=== PATIENT | female | born 1935 | race Caucasian/White ===

== ENCOUNTER 2017-02-15 06:15 | Inpatient (IN) | payer OTHER ==
--- NOTE | 2017-02-15 12:06 | HOSPPROG ---
Hospitalist Progress Note Assessment/Plan: HISTORY AND PHYSICAL CC:Difficulty with balance and fall at home HISTORY: This patient felt fine when she went to bed last night but awoke at 2 o'clock this morning feeling a need to urinate. As she tried to get up out of bed she suddenly felt that her balance was off and she fell forward tumbling onto the floor. She does not feel like she injured herself to her fall at all. However since then every time she tries to sit up or stand up she starts to fall directly forward and does not have the balance to prevent this. She has not been able to stand up successfully since that time. She delayed coming to the ER but eventually this morning came into the ER where she still was having balance difficulty tipping forward. She denies any kind of dizziness or lightheadedness, denies anything that sounds like vertigo, though she did have some nausea briefly at home this morning without vomiting. There is no headache, no change in vision, no auditory symptoms ear pain or ear pressure. She has no recent head injury. There are no palpitations or chest pain or shortness of breath. She has noticed no focal weakness or any other focal neurologic symptoms. Notably the patient does have some chronic balance issues and does use 2 canes to assist her walking if she is on any kind of uneven surface. The patient has history of 1 episode of syncope years ago but has had no syncopal type symptoms since having a pacer placed about 7 years ago. 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 She had 4 children No use of tobacco or alcohol MEDICATIONS: The patients list has been reconciled by our clinical pharmacist in the EMR. I have reviewed the list and ordered appropriate medicines. 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, no focal weakness I did have her sit forward and did several other brainstem maneuvers and did not find any nystagmus pupils round equal and reactive and her vision appears normal grossly at the bedside Skin: warm, dry, good color, no rash HEENT: normal Neck: no mass or jvd Resps: relaxed Lungs: clear breath sounds Heart: regular, no murmur Abdomen: soft, nondistended, nontender, +BS, no mass Upper Extremities: normal Lower Extremities: no edema, warm No Bleeding or bruising IV site: looks normal LABORATORY DATA: all lab data are still pending at this time RADIOLOGY STUDIES: CT scan of head was done in the ER, my personal review of images and interpretation: No bleed, ischemic lesions, masses, or other acute abnormalities, no significant atrophy 12 LEAD EKG: Pending ASSESSMENT: 1-Acute onset of disequilibrium with tendency to fall directly forward, fall at home, gait instability 2-Highly suspicious for acute ischemic stroke of brainstem or cerebellum 3-History of atrial fibrillation on chronic anticoagulation and chronic daily aspirin at low-dose, stable with paced rhythm at this time 4-Chronic stable systolic heart disease with most recent ejection fraction measured at 20 to 25%, well compensated at this time 5-Mild systolic hypertension at this time may be related to her acute event 6-Pulmonary hypertension noted on previous echocardiograms PLANS: - I reviewed her case in detail with Dr. Morgan and asked him to see the patient -Observe on property management intern -Continue daily aspirin and Eliquis -Check lipid panel -Imaging of carotid arteries -Fall risk precautions -The speech language pathology assessment of her swallowing -Physical occupational therapy -Consider repeat CT scan to reassess brainstem and cerebellum for possible ischemic lesion -Permissive hypertension at this time but will follow closely and treat as indicated over time I have reviewed the patient's case in detail with Dr. Alvin Morgan of Neurology I have reviewed the patient's past medical records as part of this assessment, including prior hospital records from this hospital Objective: Vital Signs Temp Pulse Resp BP Pulse Ox 36.3 C 70 18 169/91 H 96 02/15/17 11:41 02/15/17 11:41 02/15/17 11:41 02/15/17 11:41 02/15/17 11:41 ICD10 Worksheet Patient Problems: Problems Problem Status Onset Acute exacerbation of CHF (congestive heart failure) Acute CHF (congestive heart failure) Acute Chronic Disease Mgmt/Transitional Care Acute Pneumonia Acute
[2017-02-15 12:50] LABS: % IMMATURE GRANULYOCYTES 0.2 % (0.0-1.1); ABSOLUTE IMMATURE GRANULOCYTES 0.01 10^3/uL (0.00-0.10); ADD DIFF? NO; ADD MORPH? NO; ADD SCAN? NO; ATYPICAL LYMPHOCYTE FLAG 10 (0-99); FRAGMENT RBC FLAG 20 (0-99); HEMATOCRIT 41.4 % (38.0-47.0); HEMOGLOBIN 13.9 g/dL (12.6-16.3); LEFT SHIFT FLG 0 (0-99); LIPEMIA HEMOLYSIS FLAG 80 (0-99); MEAN CELL HEMOGLOBIN 30.8 pg (27.9-34.1); MEAN CELL HEMOGLOBIN CONCENTR. 33.6 g/dL (32.4-36.7); MEAN CELL VOLUME 91.6 fL (81.5-99.8); MEAN PLATELET VOLUME 9.5 fL (8.7-11.7); PLATELET CLUMPS FLAG 10 (0-99); PLATELET COUNT 268 10^3/uL (150-400); RED BLOOD CELL COUNT 4.52 10^6/uL (4.18-5.33)
[2017-02-15 12:57] LABS: INR 1.2 (0.83-1.16); PROTIME(PATIENT) 15.2 SEC (12.0-15.0)
--- NOTE | 2017-02-15 14:44 | GCON ---
[f rep st] CONSULTATION NEUROLOGIC CONSULTATION REFERRING PHYSICIAN: Duy Negron MD HISTORY: This is an 83 year-old woman, who has a chief complaint of falling forward. She had been stable when she went to bed, and woke up at 2 in the morning feeling a need to urinate, and got out of bed and fell forward. She continues to complain that when she gets up she feels as if she is going to fall forward, but says it is not a spinning or vertiginous phenomenon. She is not having chest pain or palpitations or shortness of breath. No focal numbness or weakness. No change in vision, speech, chewing, or swallowing. She does have some trouble with balance, and often uses canes when she is walking, and occasionally has a little bit of numbness in her feet. She had a syncopal event several years ago, and has a pacemaker in place and AICD. She has a low ejection fraction. She had a new device placed 2 years ago, and is followed by Dr. Ahuja in Cardiology. REVIEW OF SYSTEMS: A 10-point review of systems was completed and unremarkable , except for that noted above. PAST MEDICAL HISTORY: History of atrial fibrillation, with ablation and pacer. Heart failure, with ejection fraction of 20% to 25%. Pulmonary hypertension. Lumpectomy. Chronic kidney disease. FAMILY HISTORY: No family history of stroke. SOCIAL HISTORY: No alcohol or smoking. ALLERGIES: No known allergies. MEDICATIONS AT HOME: [place]-3 fatty acids, multivitamin, Toprol-XL 25 mg, aspirin 81 mg daily, and Eliquis 5 mg twice daily. PHYSICAL EXAM: VITAL SIGNS: Blood pressure is 169/91, pulse of 70, respirations 18, temperature 36.3. GENERAL: She is well developed, in no acute distress. EYES: Clear. NECK: Supple. No bruits or masses. CARDIAC: Regular rate and rhythm. NEUROLOGIC: She is awake, alert, attentive, and fully oriented. Pupils 3 mm and reactive. Extraocular movements intact. Normal facial sensation and movement. Motor exam: Normal muscle bulk and tone. 5/5 strength. Sensation is preserved for temperature and light touch, although perhaps a little decreased sensory perception in the feet. Reflexes hypoactive in the legs. LABORATORY STUDIES: Unremarkable CBC and chemistry. INR of 1.2. She had a head CT obtained, which showed no acute abnormalities, with just some cerebral atrophy and chronic microvascular disease changes. IMPRESSION: The patient has developed acute feeling of unsteadiness, that arose at 2 this morning and has persisted. It is a feeling of falling forward without having classic vertigo. It could be peripheral, but these are not classic vestibular symptoms. Midline cerebellar infarct in the vermis would be a consideration, but we cannot have MRI to look for that acutely beyond the head CT we have obtained. There is not really any other clear-cut explanation for why she would have this. She does not seem to have parkinsonism, and a little bit of neuropathy would not typically make someone fall forward. PLAN: Will be probably to monitor, and perhaps repeat head CT tomorrow. I will also check a carotid ultrasound to make sure she does not have any severe stenoses in the carotid system. TOTAL UNIT TIME: 55 minutes. /[id number]/MODL MTDD
--- NOTE | 2017-02-15 15:50 | EDPHY ---
H & P Time Seen by Provider: 02/15/17 06:45 HPI/ROS: CHIEF COMPLAINT: Off balance HISTORY OF PRESENT ILLNESS: This 81-year-old woman was in her usual state of health yesterday. She woke up at 2:00 a.m. today to go to the bathroom and lost her balance. She at that time did have some right knee pain which is now completely gone. She felt like she was almost going forward and could not stand up without assistance. She lives alone was brought in by friend. This was associated with some nausea but not with a headache. She has had vertigo and this did not feel similar. She specifically did not have a sensation of spinning. Symptoms continue and are moderate to severe. REVIEW OF SYSTEMS: Eye: no change in vision ENT: no sore throat Cardiac: no chest pain or syncope Pulmonary: no cough or SOB Abdomen: no vomiting, diarrhea, abdominal pain Musculoskeletal: HPI Skin: She has a groin rash bilateral which is chronic and unchanged from usual. Neuro: HPI Constitutional: no fever : no urinary symptoms A comprehensive 10 point review of systems is otherwise negative aside from elements mentioned in the history of present illness. PAST MEDICAL HISTORY: Includes pacemaker, AFib on Eliquis, congestive heart failure. Pulmonary hypertension. Social history: Nonsmoker General Appearance: Alert and conversant, cooperative. Eyes: No scleral icterus. Extraocular motion intact. Pupils reactive to light. ENT, Mouth: Normal mucous membranes. Respiratory: Normal respiratory effort, breath sounds equal, lungs are clear to auscultation. Cardiovascular: Regular rate and rhythm. Gastrointestinal: Abdomen is soft and non tender. Neurological: Alert and oriented x3. Normally conversant. Face symmetric, normal movement and sensation in all extremities. Normal [id number] bilaterally and no pronator drift. Toes downgoing. Skin: Scattered red papules on both inner thighs; no petechiae, not hot to the touch, no lymphangitis. Musculoskeletal: No peripheral edema and no joint swelling. Psychiatric: Not agitated. Emergency Department course/MDM: Noncontrast head CT negative per Dr. Townsend at 8:00 a.m.. Patient presents to the emergency department still off balance. Differential includes but not limited to ischemic stroke or other cerebellar problem, Parkinson's, peripheral neuropathy. MRI not obtainable because of the patient's pacemaker. Admission to hospitalist for further evaluation, Neurology consultation. Smoking Status: Never smoked Constitutional: Initial Vital Signs Temperature (C) 36.3 C 02/15/17 11:41 Heart Rate 70 02/15/17 11:41 Respiratory Rate 18 02/15/17 11:41 Blood Pressure 169/91 H 02/15/17 11:41 O2 Sat (%) 96 02/15/17 11:41 Allergies/Adverse Reactions: No Known Allergies Allergy (Verified 07/09/15 10:06) Home Medications: Medication Instructions Recorded Apixaban [Eliquis] 5 mg PO BID 07/09/15 Metoprolol Succinate Xr [Toprol Xl 12.5 mg PO BID 07/09/15 25 mg (*)] Multivitamins [Multivitamin (*)] 1 each PO DAILY 07/09/15 [place]-3 Fatty Acids [Fish Oil 1000 1,000 mg PO DAILY 07/09/15 mg (*)] Aspirin [Aspirin 81mg (*)] 81 mg PO DAILY 02/15/17 Medical Decision Making - Diagnostics EKG Interpretation: 12-lead EKG interpreted by me; official reading is in trace master. My interpretation is atrial flutter with ventricular pacing at a rate of 70 Imaging Results: Imaging Impressions Head CT 02/15/17 07:00 Impression: 1. No acute intracranial findings. If symptoms persist and clinical suspicion warrants, consider MRI. 2. Diffuse cerebral atrophy with periventricular and subcortical low attenuation consistent with chronic microvascular ischemic gliosis. Findings discussed with BUZZ BROWN 02/15/2017 at 757. Differential Diagnosis: Differential considered including but not limited to cerebellar stroke, vertebral dissection, intracranial mass, metabolic, peripheral vertigo, and listed previously. Consult/Admit Bed Type: [address] - Data Points Laboratory Results: Laboratory Results 02/15/17 06:55 02/15/17 02/15/17 02/15/17 06:55 06:55 06:55 WBC 6.01 10^3/uL 10^3/uL (3.80-9.50) RBC 4.52 10^6/uL 10^6/uL (4.18-5.33) Hgb 13.9 g/dL g/dL (12.6-16.3) Hct 41.4 % % (38.0-47.0) MCV 91.6 fL fL (81.5-99.8) MCH 30.8 pg pg (27.9-34.1) MCHC 33.6 g/dL g/dL (32.4-36.7) RDW 14.0 % % (11.5-15.2) Plt Count 268 10^3/uL 10^3/uL (150-400) MPV 9.5 fL fL (8.7-11.7) Neut % (Auto) 42.0 % % (39.3-74.2) Lymph % (Auto) 44.6 % % (15.0-45.0) [place] % (Auto) 9.2 % % (4.5-13.0) Eos % (Auto) 3.5 % % (0.6-7.6) Baso % (Auto) 0.5 % % (0.3-1.7) Nucleat RBC Rel Count 0.0 % % (0.0-0.2) Absolute Neuts (auto) 2.53 10^3/uL 10^3/uL (1.70-6.50) Absolute Lymphs (auto) 2.68 10^3/uL 10^3/uL (1.00-3.00) Absolute Monos (auto) 0.55 10^3/uL 10^3/uL (0.30-0.80) Absolute Eos (auto) 0.21 10^3/uL 10^3/uL (0.03-0.40) Absolute Basos (auto) 0.03 10^3/uL 10^3/uL (0.02-0.10) Absolute Nucleated RBC 0.00 10^3/uL 10^3/uL (0-0.01) Immature Gran % 0.2 % % (0.0-1.1) Immature Gran # 0.01 10^3/uL 10^3/uL (0.00-0.10) PT 15.2 SEC H SEC (12.0-15.0) INR 1.20 H (0.83-1.16) Troponin I < 0.012 ng/mL ng/mL (0-0.034) Departure - Departure Disposition: [facility] Acute Clinical Impression: Ataxia Condition: Good
--- NOTE | 2017-02-15 15:52 | CPEKG ---
Heart Rate: 70 RR Interval: 857 QRSD Interval: 124 QT Interval: 444 QTC Interval: 480 QRS [place]: 184 T Wave [place]: -26 EKG Severity - ABNORMAL ECG - EKG Impression: AFIB/FLUTTER AND VENTRICULAR-PACED RHYTHM Electronically Signed By: Oneil Jones 15-Feb-2017 15:51:11
[2017-02-15] MEDS ORDERED: ONDANSETRON DISINTEGRATING 4 MG TAB PO PRN (17:55)
[2017-02-15] MEDS ORDERED: ZOLPIDEM TARTRATE 5 MG TAB PO PRN (21:36)
[2017-02-15] MEDS: APIXABAN 5 MG TAB PO SCH (22:05)
[2017-02-15] MEDS: METOPROLOL SUCCINATE XR 25 MG TAB PO SCH (22:05)
[2017-02-16 05:15] LABS: CHOLESTEROL 181 mg/dL (140-220); CHOLESTEROL/HDL RATIO 3.93 RATIO (1.00-4.44); HIGH DENSITY LIPOPROTEIN 46 mg/dL (40-85); LDL/HDL RATIO 2.39 RATIO (1.00-3.22); LOW DENSITY LIPOPROTEIN 110 mg/dL (80-100); NON-HIGH DENSITY LIPOPROTEIN 135 mg/dL (90-129); TRIGLYCERIDE 129 mg/dL (35-135); VERY LOW DENSITY LIPOPROTEINS 25 mg/dL (8-25)
[2017-02-16 07:48] VITALS: PULSE 70
[2017-02-16] MEDS ORDERED: MULTIVITAMINS 1 EACH TAB PO SCH (09:00)
[2017-02-16] MEDS ORDERED: ASPIRIN 325 MG TAB PO SCH (09:00)
[2017-02-16] MEDS ORDERED: OMEGA-3 FATTY ACIDS 1,000 MG CAP PO SCH (09:00)
--- NOTE | 2017-02-16 09:21 | NEUROPROG ---
Assessment: Resolving imbalance of uncertain cause. OK to discharge home today on same meds. Total unit time 25 min. Subjective: Pt says that she feels back to her baseline Objective: Vital Signs Temp Pulse Resp BP Pulse Ox 36.4 C 70 16 132/70 H 93 02/16/17 07:43 02/16/17 07:43 02/16/17 07:43 02/16/17 07:43 02/16/17 07:43 02/15/17 02/16/17 02/17/17 05:59 05:59 05:59 Output Total 600 Balance -600 PT 15.2 SEC (12.0-15.0) H 02/15/17 06:55 INR 1.20 (0.83-1.16) H 02/15/17 06:55 Mild unsteadiness but back to baseline essentially and more comfortable with cane. Negative Carotid US. Allergies/Adverse Reactions: No Known Allergies Allergy (Verified 07/09/15 10:06)
[2017-02-16] MEDS: METOPROLOL SUCCINATE XR 25 MG TAB PO SCH (09:22)
[2017-02-16] MEDS: APIXABAN 5 MG TAB PO SCH (09:23)
[2017-02-16 12:08] VITALS: BP 154/73; RESP 18; TEMP 98.6; O2SAT 92
--- NOTE | 2017-02-16 12:57 | PDDCSUM ---
Discharge Summary Discharge Summary: DISCHARGE DIAGNOSES: -suspected cerebellar stroke versus other causes of acute transient cerebellar ataxia and disequilibrium -chronic rate controlled atrial fibrillation on chronic oral anticoagulant with Eliquis -hypercholesterolemia CONSULTANTS: Dr. Alvin Morgan PROCEDURES: CT scan of head with no acute abnormalities Carotid Doppler ultrasound imaging with no evidence of cerebral vascular stenosis HOSPITAL COURSE SUMMARY: This patient was doing well at home until 2 o'clock in the morning on the day of admission when she woke up. She got out of bed trying to bathroom but had imbalance and disequilibrium fell forward to the floor. There was no injury. However following this she was unable to sit up or stand without falling forward. There was no vertigo symptom no hearing or visual symptoms and no other localizing symptoms at all. She presented to the ER with the same symptom and had equivalent changes on examination. She was observed here in the hospital. All of her symptoms completely resolved at this time she is back to being able to walk with a cane which is her usual. There been no other new symptoms neurologic abnormalities or other complications. CT scan of the head was unremarkable and Doppler imaging showed no evidence of cerebral vascular disease. She did have an LDL cholesterol of 110 and is not on a statin therapy. At home she does take Eliquis twice daily for atrial fibrillation and is compliant with that. She does not take a daily aspirin although that had been recommended in the past for her. Her blood pressures have been in reasonable shape here. At this time she is stable for discharge to home. I did review her case with her talent program manager Dr. Seth Ahuja who agrees with resuming daily aspirin and adding statin therapy which were my recommendations. She will continue her Eliquis. PENDING TEST RESULTS: None MEDICATION CHANGES: Begin aspirin 81 mg daily Begin Lipitor 10 mg daily. She will need follow-up before her lipid levels FOLLOW-UP PLAN: With her talent program manager Dr. Ahuja in [place] for her hyperlipidemia and risk reduction management Greater than 35 minutes bedside and care coordination time today
--- NOTE | 2017-02-16 17:26 | PDIAF ---
- Diagnosis Diagnosis: suspected CVA, ataxia dysequilibrium, fall - Medication Management Discharge Medications: Medications to Continue on Transfer Apixaban [Eliquis] 5 mg PO BID 07/09/15 [Last Taken 02/14/17 21:00] Metoprolol Succinate Xr [Toprol Xl 25 mg (*)] 12.5 mg PO BID 07/09/15 [Last Taken 02/14/17 21:00] Multivitamins [Multivitamin (*)] 1 each PO DAILY 07/09/15 [Last Taken 07/16/15] [place]-3 Fatty Acids [Fish Oil 1000 mg (*)] 1,000 mg PO DAILY 07/09/15 [Last Taken 07/14/15] Aspirin [Aspirin 81mg (*)] 81 mg PO DAILY 02/15/17 [Last Taken 02/15/17 3 tabs] Atorvastatin Calcium [Lipitor 10 mg (*)] 10 mg PO DAILY #60 tab 02/16/17 [Last Taken Unknown] Discharge Medications: Refer to the Discharge Home Medication list for PRN reason. - Orders Services needed: Home Care, Physical Therapy Home Care Face to Face: I certify that this patient was under my care and that I had the required [id number] encounter meeting the encounter requirements on the discharge day. My findings support the fact that the patient is homebound as defined in CMS Chapter 7 Medicare Benefits Manual 30.1.1, The condition of the patient is such that there exists a normal inability to leave home and consequently, leaving home would require a considerable and taxing effort. Diet Recommendation: cardiac -low fat low salt Diet Texture: Regular Texture Diet - Follow Up Care Current Providers and Referrals: Chrisitn Alarcon MD [Primary Care Provider] -
--- NOTE | 2017-02-16 17:26 | PDGENHP ---
History and Physical History and Physical: CC:Difficulty with balance and fall at home HISTORY: This patient felt fine when she went to bed last night but awoke at 2 o'clock this morning feeling a need to urinate. As she tried to get up out of bed she suddenly felt that her balance was off and she fell forward tumbling onto the floor. She does not feel like she injured herself to her fall at all. However since then every time she tries to sit up or stand up she starts to fall directly forward and does not have the balance to prevent this. She has not been able to stand up successfully since that time. She delayed coming to the ER but eventually this morning came into the ER where she still was having balance difficulty tipping forward. She denies any kind of dizziness or lightheadedness, denies anything that sounds like vertigo, though she did have some nausea briefly at home this morning without vomiting. There is no headache, no change in vision, no auditory symptoms ear pain or ear pressure. She has no recent head injury. There are no palpitations or chest pain or shortness of breath. She has noticed no focal weakness or any other focal neurologic symptoms. Notably the patient does have some chronic balance issues and does use 2 canes to assist her walking if she is on any kind of uneven surface. The patient has history of 1 episode of syncope years ago but has had no syncopal type symptoms since having a pacer placed about 7 years ago. 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 She had 4 children No use of tobacco or alcohol MEDICATIONS: The patients list has been reconciled by our clinical pharmacist in the EMR. I have reviewed the list and ordered appropriate medicines. 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, no focal weakness I did have her sit forward and did several other brainstem maneuvers and did not find any nystagmus pupils round equal and reactive and her vision appears normal grossly at the bedside Skin: warm, dry, good color, no rash HEENT: normal Neck: no mass or jvd Resps: relaxed Lungs: clear breath sounds Heart: regular, no murmur Abdomen: soft, nondistended, nontender, +BS, no mass Upper Extremities: normal Lower Extremities: no edema, warm No Bleeding or bruising IV site: looks normal LABORATORY DATA: all lab data are still pending at this time RADIOLOGY STUDIES: CT scan of head was done in the ER, my personal review of images and interpretation: No bleed, ischemic lesions, masses, or other acute abnormalities, no significant atrophy 12 LEAD EKG: Pending ASSESSMENT: 1-Acute onset of disequilibrium with tendency to fall directly forward, fall at home, gait instability 2-Highly suspicious for acute ischemic stroke of brainstem or cerebellum 3-History of atrial fibrillation on chronic anticoagulation and chronic daily aspirin at low-dose, stable with paced rhythm at this time 4-Chronic stable systolic heart disease with most recent ejection fraction measured at 20 to 25%, well compensated at this time 5-Mild systolic hypertension at this time may be related to her acute event 6-Pulmonary hypertension noted on previous echocardiograms PLANS: - I reviewed her case in detail with Dr. Morgan and asked him to see the patient -Observe on ekg monitor tech -Continue daily aspirin and Eliquis -Check lipid panel -Imaging of carotid arteries -Fall risk precautions -The speech language pathology assessment of her swallowing -Physical occupational therapy -Consider repeat CT scan to reassess brainstem and cerebellum for possible ischemic lesion -Permissive hypertension at this time but will follow closely and treat as indicated over time I have reviewed the patient's case in detail with Dr. Alvin Morgan of Neurology I have reviewed the patient's past medical records as part of this assessment, including prior hospital records from this hospital
== END 2017-02-16 14:34 | disposition home health service (06) | DRG 65 ==
LOC: F3N 08:55 → OBSVTOIN 09:00
PROVIDERS: ADMIT Internal Medicine; ATTEND Internal Medicine
DX: I63.9 Cerebral infarction, unspecified (principal); I11.0 Hypertensive heart disease with heart failure; I50.22 Chronic systolic (congestive) heart failure; Z95.0 Presence of cardiac pacemaker; Z79.01 Long term (current) use of anticoagulants
CPT/HCPCS: 92507-GN; 92523-GN; 92610-GN; 97116-GP; 97161-GP; 97166-GO; 97535-GO; G8978-GP-CI; G8979-GP-CI; G8980-GP-CI; G8987-GO-CJ; G8988-GO-CI; G8989-GO-CI; G8996-GN-CH; G8997-GN-CH; G8998-GN-CH; G9168-GO-CI; G9169-GN-CH; G9169-GN-CI; G9170-GN-CI

== ENCOUNTER → 2017-04-23 | Outpatient (CLI) | payer OTHER | LOC: BHLMT 11:00 | PROVIDERS: ATTEND Internal Medicine Cardiovascular Disease | DX: Z01.818 Encounter for other preprocedural examination (principal); I50.22 Chronic systolic (congestive) heart failure; I10 Essential (primary) hypertension; I34.0 Nonrheumatic mitral (valve) insufficiency; I44.2 Atrioventricular block, complete; I48.2 Chronic atrial fibrillation; E78.5 Hyperlipidemia, unspecified; Z95.0 Presence of cardiac pacemaker | CPT/HCPCS: 93005-PO ==

== ENCOUNTER 2017-04-28 11:58 | Day surgery (SDC) | payer OTHER ==
[2017-04-28] MEDS ORDERED: ceFAZolin 2 GM/DEXTROSE 100 ML IV ONE (12:43)
[2017-04-28] MEDS ORDERED: LR 1,000 ML IV ONE (12:52)
[2017-04-28] MEDS ORDERED: LIDOCAINE 1% 2 ML INJ ID PRN (12:52)
[2017-04-28] MEDS ORDERED: BUPIVACAINE/EPI 0.5% 30 ML SDV ONE ×2 (12:53→13:22)
[2017-04-28] MEDS ORDERED: BUPIVACAINE/EPI 0.25% 30 ML SDV ONE (12:53)
[2017-04-28 13:00] VITALS: PULSE 70
--- NOTE | 2017-04-28 13:27 | PDHPUP ---
History & Physical Update H&P update statement: This history and physical update is based on an assessment of the patient which was completed after admission or registration (within 24 hours), but prior to the surgery/procedure. H&P update: H&P reviewed & patient examined, no change in patient's condition since H&P completed
[2017-04-28] MEDS ORDERED: MIDAZOLAM 2 MG/2 ML VIAL ONE ×2 (13:52→14:01)
--- NOTE | 2017-04-28 13:53 | PDANEPAE ---
ANE Past Medical History - Cardiovascular History Hx Hypertension: Yes Hx Coronary Artery / Peripheral Vascular Disease: Yes Hx CHF / Valvular Disease: Yes Cardiovascular History Comment: Fermín Feng, , TR - Pulmonary History Hx COPD: No Hx Asthma/Reactive Airway Disease: No Hx Recent Upper Respiratory Infection: No Hx Oxygen in Use at Home: No Hx Sleep Apnea: No Sleep Apnea Screening Result - Last Documented: Negative - Neurologic History Hx Cerebrovascular Accident: No Hx Seizures: No Hx Dementia: No Neurologic History Comment: Dr Christin Alarcon said she could take Namenda w/all benefits. "my memory is fine" - Endocrine History Hx Diabetes: No - Renal History Hx Renal Disorders: No - Liver History Hx Hepatic Disorders: No - Neurological & Psychiatric Hx Hx Neurological and Psychiatric Disorders: No - Cancer History Hx Cancer: No - Congenital Disorder History Hx Congenital Disorders: No - GI History Hx Gastrointestinal Disorders: No - Other Health History Other Health History: L knee meniscal tear - Chronic Pain History Chronic Pain: Yes (L knee) - Surgical History Prior Surgeries: Ablation. pacemaker insertion. R knee scope~ 2008. 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 Date Pacemaker Last Checked: 03-22-17 ANE Patient History - Allergies Allergies/Adverse Reactions: No Known Allergies Allergy (Verified 04/27/17 18:14) - Home Medications Home Medications: Apixaban [Eliquis] 5 mg PO BID 07/09/15 [Last Taken 04/26/17 07:00] Metoprolol Succinate Xr [Toprol Xl 25 mg (*)] 12.5 mg PO BID 07/09/15 [Last Taken 04/28/17 09:00] Multivitamins [Multivitamin (*)] 1 each PO DAILY 07/09/15 [Last Taken 04/26/17] Aspirin [Aspirin 81mg (*)] 81 mg PO DAILY 02/15/17 [Last Taken 04/21/17 07:00] Namenda 10 mg 04/27/17 [Last Taken 04/27/17 18:00] Zolpidem Tartrate 04/27/17 [Last Taken 04/27/17 20:30] - NPO status NPO Since - Liquids (Date): 04/28/17 NPO Since - Liquids (Time): 08:00 NPO Since - Solids (Date): 04/27/17 NPO Since - Solids (Time): 18:00 - Smoking Hx Smoking Status: Never smoked ANE Labs/Vital Signs - Vital Signs Blood Pressure: 147/64 Heart Rate: 70 Respiratory Rate: 20 O2 Sat (%): 96 Height: 175.26 cm Weight: 90.718 kg ANE Physical Exam - Airway Neck exam: decreased ROM Mallampati Score: Class 3 Mouth exam: poor dentition - Pulmonary Pulmonary: no respiratory distress, clear to auscultation - Cardiovascular Cardiovascular: regular rate and rhythym - ASA Status ASA Status: III (Pacer Dependent [facility] pacer will arrange for post op check. Off eloquis greater than 48 hrs.)
[2017-04-28] MEDS ORDERED: PROPOFOL/EMULSION 500 MG/50 ML BOTTLE IV ONE (14:01)
[2017-04-28] MEDS ORDERED: NALOXONE HCL 0.4 MG/ML INJ IVP PRN (15:04)
[2017-04-28] MEDS ORDERED: DEXAMETHASONE 4 MG/ML VIAL ONE (15:08)
[2017-04-28] MEDS ORDERED: RANITIDINE 50 MG/2 ML VIAL ONE (15:08)
--- NOTE | 2017-04-28 15:17 | POSTANESTH ---
Post Anesthetic Evaluation Cardiovascular Status: Similar to Pre-Op Cond Respiratory Status: Similar to Pre-op Cond. Level of Consciousness/Mental Status: Can Participate in Eval Pain Control: Adequate, Prn Tx Ordered Nausea/Vomiting Control: Adequate, Prn Tx Ordered (pacer rep on the way)
[2017-04-28] MEDS ORDERED: HYDROmorphONE/DILAUDID 1 MG/ML SYR ONE (15:42)
[2017-04-28] MEDS: HYDROmorphONE/DILAUDID 1 MG/ML SYR IVP PRN ×3 (15:45→15:55)
[2017-04-28 16:15] VITALS: TEMP 96.8
[2017-04-28 16:24] VITALS: BP 161/72; RESP 13; O2SAT 96
--- NOTE | 2017-04-28 20:07 | GOP ---
[f rep st] OPERATIVE REPORT DATE OF OPERATION: 04/28/2017 SURGEON: Raoul Chavarria MD ANESTHESIA: General. PREOPERATIVE DIAGNOSIS: 1. Left knee medial meniscus tear. 2. Patellofemoral chondromalacia. 3. Rule out lateral meniscus tear. POSTOPERATIVE DIAGNOSIS: 1. Left knee medial meniscus tear. 2. Left knee lateral meniscus tear. 3. Chondromalacia patellofemoral articulation. PROCEDURE PERFORMED: 1. Arthroscopy left knee partial medial and lateral meniscectomies. 2. Arthroscopy left knee chondroplasty patellofemoral articulations. FINDINGS: Patient had a complex tear of the lateral meniscus with a detached flap anteriorly. It w as flipped into the notch. The medial meniscus had a posterior horn radial tear with near complete full-thickness detachment. The cruciate ligaments were intact. There was a moderate medial plica. The patellofemoral articulation had some grade 2 and 3 chondral surface fibrillation. The medial f emoral condyle had some grade 2 chondral surface fibrillation. Our attention was directed to the medial meniscus tear. This was resected starting at the posterior horn extending around to the junction of the anterior and middle thirds. It was tapered into this junction nicely with a duckbill punch followed by a 4.0 resector shaver. The meniscal debris was re moved. The scope was placed posteromedially, and no further meniscal capsular separation was noted. The scope was placed in the lateral compartment. The complex tear in the anterior aspect of the l ateral meniscus was noted. This flap was resected. It was flipped into the notch. We then contour ed the meniscal rim back to the junction of the anterior and middle thirds. Approximately 30% of th e lateral meniscus was removed, and this was involving the anterior segment. Approximately 30% of t he medial meniscus was resected, and this involved the posterior segment. Chondroplasty was then pe rformed with the 4 resector shaver removing delaminated and significantly chondral surface tissue from the median ridge and medial facet patella. Debris was removed from the medial and late ral gutters. Scope was placed posterolaterally, and no further meniscal capsular separation was not ed in the lateral compartment. The scope was then extracted. Approximately 30 cc 0.5% Marcaine wit h epinephrine solution was placed intra-articular, several cc into each entry portal. Entry portals were closed with 4-0 Ethilon sutures. Sterile compression dressing applied. Patient tolerated pro cedure well and transported back to recovery in stable condition. No operative complications. DESCRIPTION OF PROCEDURE: Patient taken to the operative room, administered general anesthesia, sue monroe in a supine position with the leg positioned in the leg roberts. Left lower extremity was preppe d and draped in normal sterile fashion. Esmarch exam was performed followed by elevation of thigh c uff to 300 mmHg pressure. An anterior lateral incision was made followed by insertion of the arthro scope. Superior lateral incision made followed by insertion of the outflow cannula. Anteromedial i ncision was made followed by insertion of the hook probe. Systematic exploration of the joint was p erformed. COMPLICATIONS: None /[id number]/MODL
== END 2017-04-28 17:01 | disposition home or self-care (01) ==
LOC: FSGY 11:58
PROVIDERS: ATTEND Orthopaedic Surgery Sports Medicine
PROC: 0SBD4ZZ Excision of Left Knee Joint, Percutaneous Endoscopic Approach (ICD-10-PCS; principal; 2017-04-28 14:00)
DX: S83.242A Other tear of medial meniscus, current injury, left knee, initial encounter (principal); S83.272A Complex tear of lateral meniscus, current injury, left knee, initial encounter; V48.4XXA Person boarding or alighting a car injured in noncollision transport accident, initial encounter; M22.42 Chondromalacia patellae, left knee; Z95.0 Presence of cardiac pacemaker
CPT/HCPCS: J0690; J1100; J1170; J2250; J2704; J2780

== ENCOUNTER → 2017-08-13 | Outpatient (CLI) | payer OTHER | LOC: BMCIMAGING 11:07 | PROVIDERS: ATTEND Emergency Medicine | DX: M79.671 Pain in right foot (principal) ==

== ENCOUNTER → 2017-09-10 | Outpatient (CLI) | payer OTHER | LOC: FIMAGING 09:01 | PROVIDERS: ATTEND Podiatrist | DX: M71.21 Synovial cyst of popliteal space [Baker], right knee (principal) ==